=== PATIENT | female | born 1955 ===

== ENCOUNTER 2018-05-14 22:39 | Emergency (ER) | payer BC ==
[2018-05-14] MEDS ORDERED: Sodium Chloride 0.9% 1,000 ML IV ONE (23:09)
[2018-05-14] MEDS ORDERED: Sodium Chloride 0.9% 1,000 ML ONE (23:31)
[2018-05-14 23:37] LABS: BASO # 0.1 K/uL (0.0-0.2); BASO % 0.5 % (0.0-2.0); EOS # 0.1 K/uL (0.0-0.7); HEMOGLOBIN 13.6 g/dL (11.0-16.0); LYMPH # 3.6 K/uL (1.0-4.3); LYMPH % 31.3 % (20.0-40.0); MEAN CELL VOLUME 92.9 fL (81.0-99.0); MEAN CORPUSCULAR HEMOGLOBIN 31.5 pg (27.0-31.0); MEAN CORPUSCULAR HGB CONC 33.9 g/dL (33.0-37.0); MEAN PLATELET VOLUME 9.8 fL (7.2-11.7); MONO # 0.7 K/uL (0.0-0.8); MONO % 5.8 % (0.0-10.0); NEUT # 7.2 K/uL (1.8-7.0); NEUT % 61.4 % (50.0-75.0); RBC 4.3 Mil/uL (3.80-5.20); RED CELL DISTRIBUTION WIDTH 13.2 % (11.5-14.5); WHITE BLOOD COUNT 11.7 K/uL (4.8-10.8)
[2018-05-14 23:44] LABS: ALB/GLOB RATIO 1.4 (1.0-2.1); ALBUMIN 4.4 g/dL (3.5-5.0); ALT/SGPT 30 U/L (9-52); AST/SGOT 23 U/L (14-36); BLOOD UREA NITROGEN 15 mg/dL (7-17); CALCIUM 8.7 mg/dl (8.6-10.4); GFR NON-AFRICAN AMERICAN > 60; LIPASE 44 U/L (23-300)
--- NOTE | 2018-05-15 00:26 | C.PDOC ---
History Of Present Illness 62 y/o female comes in to ED complaining of lower abdominal pain for the past several days. States that this morning, she was very constipated and started straining to have bowel movement. Patient subsequently had blood streak stool twice today. Denies nausea, vomiting, fever, dysuria, or hematuria. Time Seen by Provider: 05/14/18 22:45 Chief Complaint (Nursing): Abdominal Pain History Per: Patient History/Exam Limitations: no limitations Onset/Duration Of Symptoms: Days Current Symptoms Are (Timing): Still Present Past Medical History Reviewed: Historical Data, Nursing Documentation, Vital Signs Vital Signs: Last Vital Signs Temp 97.9 F 05/14/18 22:47 Pulse 90 05/14/18 22:47 Resp 20 05/14/18 22:47 BP 164/84 H 05/14/18 22:47 Pulse Ox 97 05/14/18 22:47 - Medical History PMH: Hypercholesterolemia, Hypothyroidism Surgical History: Cholecystectomy Family History: States: No Known Family Hx - Social History Hx Alcohol Use: No Hx Substance Use: No Review Of Systems Constitutional: Negative for: Fever Gastrointestinal: Positive for: Abdominal Pain, Constipation. Negative for: Nausea, Vomiting Genitourinary: Negative for: Dysuria, Hematuria Physical Exam - Physical Exam Appears: Non-toxic, No Acute Distress Skin: Warm, Dry Head: Atraumatic, Normacephalic Eye(s): bilateral: Normal Inspection Oral Mucosa: Moist Neck: Supple Chest: Symmetrical Cardiovascular: Rhythm Regular, No Murmur Respiratory: Normal Breath Sounds, No Rales, No Rhonchi, No Wheezing Gastrointestinal/Abdominal: Tenderness (mild diffuse tenderness), Other (negative mcburney's and butcher's; Has suprapubic horizontal scar from abdominoplasty) Rectal: Rectal Tone (normal), Hemorrhoids (on external), Other (No fissures, no active bleeding) Extremity: Bilateral: Atraumatic, Normal Color And Temperature, Normal ROM Neurological/Psych: Oriented x3, Normal Speech ED Course And Treatment - Laboratory Results Result Diagrams: 05/14/18 23:26 05/14/18 23:26 O2 Sat by Pulse Oximetry: 97 (RA) Pulse Ox Interpretation: Normal Progress Note: Bloodworks and urinalysis ordered and reviewed. Patient was given IV fluids and bentyl PO. Disposition Counseled Patient/Family Regarding: Studies Performed, Diagnosis, Need For Followup, Rx Given - Disposition Referrals: Jerilyn Abebe MD [Medical Doctor] - Disposition: HOME/ ROUTINE Disposition Time: 02:15 Condition: STABLE Additional Instructions: FOLLOW UP WITH YOUR DOCTOR/CLINIC IN 1-2 DAYS USE MEDICATIONS DIRECTED DRINK PLENTY OF WATER, AND INCREASE YOUR FIBER RETURN TO EMERGENCY ROOM IF YOUR SYMPTOMS BECOME WORSE SEGUIR CON JARAMILLO MDICO / CLNICA EN 1-2 ISBELL UTILICE MEDICAMENTOS JAYLEN SE DIRIGE LINDA VERONICA AGUA, Y AUMENTA TU FIBRA VUELVA A LA KUSUM DE EMERGENCIA SI CELY SNTOMAS SE HACEN PEOR Prescriptions: Docusate [Colace] 100 mg PO DAILY #30 cap Magnesium Citrate [Citrate of Mag] 300 ml PO ONCE PRN #1 bottle PRN Reason: Constipation Instructions: Constipation, Adult (DC) Forms: [employer] (Irish) Print Language: GERMAN - Clinical Impression Clinical Impression: Straining during bowel movements, Constipation, Abdominal pain - Scribe Statement The provider has reviewed the documentation as recorded by the Lesly Bell Provider Attestation: All medical record entries made by the Scribe were at my direction and personally dictated by me. I have reviewed the chart and agree that the record accurately reflects my personal performance of the history, physical exam, medical decision making, and the department course for this patient. I have also personally directed, reviewed, and agree with the discharge instructions and disposition.
[2018-05-15 02:26] VITALS: BP 139/67; PULSE 78; RESP 16; TEMP 98.6; O2SAT 99
== END 2018-05-15 02:26 | disposition home or self-care (01) ==
LOC: C.ER 22:39
DX: K59.00 Constipation, unspecified (principal); R10.9 Unspecified abdominal pain; E78.00 Pure hypercholesterolemia, unspecified
CPT/HCPCS: 80053; 83690; 85025; 99285; G0328; J7030